=== PATIENT | female | born 1960 | race Hispanic/Latino ===

== ENCOUNTER 2020-01-24 09:59 | Emergency (ER) | payer OTHER ==
[2020-01-24] MEDS ORDERED: DIAZEPAM 5 MG/ML 2 ML SYG ONE (10:36)
[2020-01-24] MEDS ORDERED: KETOROLAC TROMETHAMINE 30MG/ML ONE (10:36)
== END 2020-01-24 11:54 | disposition home or self-care (01) ==
LOC: EDH 09:59
DX: S13.4XXA Sprain of ligaments of cervical spine, initial encounter (principal); V49.9XXA Car occupant (driver) (passenger) injured in unspecified traffic accident, initial encounter; Y93.89 Activity, other specified; Y92.488 Other paved roadways as the place of occurrence of the external cause; Y99.8 Other external cause status
CPT/HCPCS: 70450; 71045; 72125; 96372; 99285; J1885; J3360